=== PATIENT | male | born 1965 | race Caucasian/White ===

== ENCOUNTER 2016-06-11 23:35 | Emergency (ER) | payer OTHER ==
[~2016-06-11] VITALS: Ht 175.3 cm; Wt 104.3 kg
[2016-06-12] MEDS ORDERED: PRILOSEC20 MG PO (00:16)
== END 2016-06-12 00:09 | disposition short-term general hospital (02) ==
LOC: ER 23:35
DX: H57.12 Ocular pain, left eye (principal); Z79.899 Other long term (current) drug therapy